=== PATIENT | female | born 1965 | race Caucasian/White ===

== ENCOUNTER 2017-11-25 15:41 | Emergency (ER) | payer OTHER ==
[~2017-11-25] VITALS: Ht 160 cm; Wt 77.1 kg
[2017-11-25 16:01] VITALS: Ht 160 cm; Wt 77.1 kg
[2017-11-25 17:39] VITALS: BP 119/85
== END 2017-11-25 17:40 | disposition home or self-care (01) ==
LOC: ED 15:41
DX: M75.92 Shoulder lesion, unspecified, left shoulder (principal)
CPT/HCPCS: J1885; Q0092

== ENCOUNTER 2018-06-14 15:43 | Inpatient (IN) | payer OTHER ==
[~2018-06-14] VITALS: Ht 160 cm; Wt 81.7 kg
[2018-06-14 15:46] VITALS: Ht 160 cm; Wt 81.7 kg
[2018-06-14 16:41] LABS: BASOPHIL % 0.4 % (0-2); PLATELET COUNT 260 x10^3mcL (130-400); RED CELL DISTRIBUTION WIDTH 13.2 % (11.5-14.5)
[2018-06-14 16:55] LABS: CALCIUM 9.1 mg/dL (8.5-10.1); CARBON DIOXIDE 27.8 mmol/L (21-32); CHLORIDE SERUM 102 mmol/L (98-107); CREATININE SERUM 0.8 mg/dL (0.6-1.0); GFR1 > 60 mL/min; GLUCOSE SERUM 116 mg/dL (74-106); POTASSIUM SERUM 3.9 mmol/L (3.5-5.1); SODIUM SERUM 140 mmol/L (136-145)
[2018-06-14 16:56] LABS: UA SPECIFIC GRAVITY 1.025 (1.005-1.035); microscopic required? YES; urine erythrocyte 2+ (NEGATIVE)
[2018-06-14 17:00] LABS: ALBUMIN 3.7 g/dL (3.4-5.0); ALKALINE PHOSPHATASE 72 U/L (46-116); ALT/SGPT 74 U/L (14-59); AST/SGOT 29 U/L (15-37); BILIRUBIN TOTAL 0.4 mg/dL (0.20-1.00); LIPASE 135 IU/L (73-393); TOTAL PROTEIN, SERUM 8.2 g/dL (6.4-8.2)
[2018-06-14 18:20] LABS: PHOSPHOROUS 3.8 mg/dL (2.5-4.9)
[2018-06-14 18:22] LABS: AMPHETAMINE QUAL UR NONE DETECTED (See below)
[2018-06-14 18:28] LABS: T3 TOTAL 1.04 ng/mL
[2018-06-14 18:34] VITALS: BP 103/75
[2018-06-14 18:35] LABS: FREE T4 0.58 ng/dL (0.76-1.46)
[2018-06-14 19:14] LABS: CHOLESTEROL/HDL RATIO 6.2; FREE THYROXINE INDEX 1.3 ug/dL (1.4-4.5); T4(THYROXINE) 4.2 ug/dL (4.7-13.3)
[2018-06-14 20:05] VITALS: BP 110/70
[2018-06-15 05:28] VITALS: BP 99/51
[2018-06-15 06:49] LABS: BASOPHIL % 0.3 % (0-2); PLATELET COUNT 243 x10^3mcL (130-400); RED CELL DISTRIBUTION WIDTH 13.4 % (11.5-14.5)
[2018-06-15 06:58] LABS: CALCIUM 8.4 mg/dL (8.5-10.1); CARBON DIOXIDE 26.2 mmol/L (21-32); CHLORIDE SERUM 103 mmol/L (98-107); CREATININE SERUM 0.8 mg/dL (0.6-1.0); GFR1 > 60 mL/min; GLUCOSE SERUM 111 mg/dL (74-106); POTASSIUM SERUM 3.7 mmol/L (3.5-5.1); SODIUM SERUM 139 mmol/L (136-145)
[2018-06-15 09:39] VITALS: BP 100/51
[2018-06-15 17:51] VITALS: BP 100/65
[2018-06-15 20:21] VITALS: BP 105/69
[2018-06-16 05:30] VITALS: BP 110/57
[2018-06-16 06:22] LABS: CALCIUM 8.2 mg/dL (8.5-10.1); CARBON DIOXIDE 24.3 mmol/L (21-32); CHLORIDE SERUM 108 mmol/L (98-107); CREATININE SERUM 0.9 mg/dL (0.6-1.0); GFR1 > 60 mL/min; GLUCOSE SERUM 102 mg/dL (74-106); PHOSPHOROUS 3.2 mg/dL (2.5-4.9); POTASSIUM SERUM 4.4 mmol/L (3.5-5.1); SODIUM SERUM 140 mmol/L (136-145)
[2018-06-16 06:56] LABS: BASOPHIL % 0.3 % (0-2); PLATELET COUNT 234 x10^3mcL (130-400); RED CELL DISTRIBUTION WIDTH 13.3 % (11.5-14.5)
[2018-06-16 09:07] VITALS: BP 123/78
[2018-06-16] MEDS ORDERED: SYNTHROID0.125 MG PO (11:27)
[2018-06-16 11:32] VITALS: BP 123/78
== END 2018-06-16 11:57 | disposition home or self-care (01) | DRG 244 ==
LOC: ED 15:43 → MU 17:44
PROVIDERS: Emergency Medicine; Family Medicine
DX: K57.90 Diverticulosis of intestine, part unspecified, without perforation or abscess without bleeding (principal); N17.0 Acute kidney failure with tubular necrosis; E03.9 Hypothyroidism, unspecified; E78.5 Hyperlipidemia, unspecified; S29.011A Strain of muscle and tendon of front wall of thorax, initial encounter; X58.XXXA Exposure to other specified factors, initial encounter; H91.93 Unspecified hearing loss, bilateral; R31.29 Other microscopic hematuria; R73.9 Hyperglycemia, unspecified; Y92.89 Other specified places as the place of occurrence of the external cause
CPT/HCPCS: 83880; 84439; J1885; J1956; J2270; J2405; J3490; J7030; Q0092

== ENCOUNTER 2019-06-14 11:58 | Emergency (ER) | payer OTHER ==
[~2019-06-14] VITALS: Ht 160 cm; Wt 79.4 kg
[~2019-06-14 11:58] MED LIST: SYNTHROID0.125 MG PO
[2019-06-14 12:13] VITALS: BP 130/86; Ht 160 cm; Wt 79.4 kg
== END 2019-06-14 14:04 | disposition home or self-care (01) ==
LOC: ED 11:58
DX: J38.5 Laryngeal spasm (principal)